=== PATIENT | female | born 1975 | race Two or more races ===

== ENCOUNTER 2016-10-05 06:34 | Day surgery (SDC) | payer OTHER ==
[2016-10-05] VITALS (9 sets, daily range): BP systolic 95–124; BP diastolic 42–77; PULSE 58–73; RESP 16–20; TEMP 98.2–98.7; O2SAT 58–100
[~2016-10-05] VITALS: Ht 160 cm; Wt 74.5 kg
[2016-10-05] MEDS ORDERED: MYCO500T PO (06:51)
[2016-10-05] MEDS ORDERED: HYDR200T3 PO (06:51)
[2016-10-05] MEDS ORDERED: SODIUM CHLOR 0.9% 1000 ML IV SCH (07:00)
[2016-10-05] MEDS ORDERED: MIDAZOLAM HCL 5 MG/5 ML VIAL ONE (07:48)
[2016-10-05] MEDS ORDERED: fentaNYL CITRATE 250 MCG/5 ML AMP ONE (07:48)
[2016-10-05] MEDS ORDERED: LIDOCAINE 1%/EPINEPHrine 1:100,000 SOLN 20 ML VIAL ONE (08:00)
--- NOTE | 2016-10-05 09:32 | PD.RAD ---
Post CT Procedure Prog Note Pre Procedure Diagnosis: (1) Lupus Post Procedure Diagnosis: (1) Lupus Procedure Date: Oct 05, 2016 Supervising Radiologist: Aneesh Batres Estimated blood loss: None Anesthesia: Local, Conscious Sedation Plan of Activity Patient to Unit: ROPU Patient Condition: Good Additional Comments: Post left renal biopsy x 2. Full dictated report to follow See PACS Report for procedural detail/treatment Aneesh Batres MD Oct 05, 2016 09:32
--- NOTE | 2016-10-05 10:05 | RADRPT ---
EXAM DATE/TIME: 10/05/2016 08:23 [place] COMPARISON: No previous studies available for comparison. INDICATIONS : Chronic kidney disease. SEDATION TIME: 30 minutes BIOPSY SITE: Left MEDICATION(S): 1.) 2 mg midazolam (Versed) IV 2.) 100 mcg fentanyl (Sublimaze) IV DEVICE(S): 1.) 18 gauge Biopsy gun 2.) 18 gauge Temno core biopsy needle MEDICAL HISTORY : Chronic kidney disease, Lupus. SURGICAL HISTORY : None. ENCOUNTER: Initial ACUITY: 1 day PAIN SCORE: 0/10 LOCATION: Left flank A total of two core specimen(s) were obtained and sent to the laboratory for pathologic evaluation. PROCEDURE: 1. CT guided renal biopsy. 2. Conscious sedation with continuous EKG and oximetry monitoring. 3. EKG and oximetry remained stable throughout the procedure. Prior to the procedure informed consent was obtained. Any appropriate prior imaging studies were rev iewed. Using automated exposure control and adjustment of the mA and/or kV according to patient size, radiat ion dose was kept as low as reasonably achievable to obtain optimal diagnostic quality images. DICOM format image data is available electronically for review and comparison. The site was prepped in a sterile fashion. Full sterile technique was used, including cap, mask, prabhu rile gloves and gown and a large sterile sheet. Hand hygiene and 2% chlorhexidine and/or betadine/al cohol prep was utilized per protocol for cutaneous antisepsis. The skin and subcutaneous tissues wer e infiltrated with local anesthetic solution. With CT guidance the previously identified target was localized. Biopsy was performed using the presc ribed needle as above. Adequate hemostasis was obtained with compression at the puncture site. Follow-up CT scan reveals revealed minimal perinephric hemorrhage. Delayed imaging at 5 minutes was p erformed. No enlargement was identified. The patient tolerated the procedure well and there were no complications. The patient was returned to the Radiology Outpatient Unit in stable condition. CONCLUSION: 1. Uncomplicated CT-guided biopsy of the left kidney 2 biopsies were performed using an 18 gauge core biopsy needle. . Aneesh Batres MD on October 05, 2016 at 10:03 Board Certified Radiologist. This report was verified electronically.
[2016-10-05 10:22] LABS: AUTOMATED NEUTROPHIL # 6.1 TH/MM3 (1.8-7.7); BASOPHIL # 0.1 TH/MM3 (0-0.2); EOSINOPHIL # 0.2 TH/MM3 (0-0.4); EOSINOPHIL % 1.5 % (0.0-4.0); HEMATOCRIT 42.6 % (35.0-46.0); HEMO FLAGS DIFF FINAL; LYMPH % 26.3 % (9.0-44.0); LYMPHOCYTE # 2.6 TH/MM3 (1.0-4.8); MEAN CELL VOLUME 75.5 FL (80.0-100.0); MEAN CORPUSCULAR HEMOGLOBIN 24.7 PG (27.0-34.0); MEAN CORPUSCULAR HGB CONC 32.7 % (32.0-36.0); MONO % 8.9 % (0.0-8.0); NEUT % 62.3 % (16.0-70.0); PLATELET COUNT 256 TH/MM3 (150-450); RED BLOOD COUNT 5.65 MIL/MM3 (4.00-5.30); RED CELL DISTRIBUTION WIDTH 17.9 % (11.6-17.2); WHITE BLOOD COUNT 9.9 TH/MM3 (4.0-11.0)
[2016-10-05 12:46] LABS: AUTOMATED NEUTROPHIL # 5.3 TH/MM3 (1.8-7.7); BASOPHIL # 0.1 TH/MM3 (0-0.2); BASOPHIL % 0.9 % (0.0-2.0); EOSINOPHIL # 0.1 TH/MM3 (0-0.4); EOSINOPHIL % 1.1 % (0.0-4.0); HEMATOCRIT 42.1 % (35.0-46.0); HEMO FLAGS DIFF FINAL; LYMPHOCYTE # 3.4 TH/MM3 (1.0-4.8); MEAN CELL VOLUME 75.4 FL (80.0-100.0); MEAN CORPUSCULAR HEMOGLOBIN 24.9 PG (27.0-34.0); PLATELET COUNT 258 TH/MM3 (150-450); RED BLOOD COUNT 5.58 MIL/MM3 (4.00-5.30); RED CELL DISTRIBUTION WIDTH 17.2 % (11.6-17.2); WHITE BLOOD COUNT 9.7 TH/MM3 (4.0-11.0)
== END 2016-10-05 15:45 | disposition home or self-care (01) ==
LOC: HRAD 06:34 → HRIP 06:35 → HRAD 15:45
PROVIDERS: ATTEND Internal Medicine Nephrology
DX: N18.3 Chronic kidney disease, stage 3 (moderate) (principal); M32.14 Glomerular disease in systemic lupus erythematosus; Z01.818 Encounter for other preprocedural examination
CPT/HCPCS: 50200; 77012; 85025; J2250; J3010; J7030